=== PATIENT | male | born 1995 | race Caucasian/White ===

== ENCOUNTER 2016-12-11 21:32 | Emergency (ER) | payer OTHER ==
[2016-12-11 21:55] VITALS: BP 145/87; PULSE 83; TEMP 97.8; BMI 33.5
[2016-12-11] MEDS ORDERED: MECLIZINE HCL 25 MG TABLET (FP) PO ONE (21:55)
--- NOTE | 2016-12-11 21:55 | PDOC ---
[id number]/VOMITING/DIARRHEA Time Seen by Provider: 12/11/16 21:42 History Source: Patient Exam Limitations: No Limitations - History of Present Illness Initial Comments: 12/11/16 23:29 This is a 21-year-old male who comes in complaining of vertigo type symptoms 2 days. Patient said vertigo is associated with an intermittent headache and some nausea. Patient denies any recent upper respiratory tract symptoms or viral illnesses. Patient has not taken anything for the symptoms. The addition to that patient said he has been under a lot of stress and has had intermittent episodes of diarrhea and constipation for the last 4-5 months. Patient denies any abdominal pain, fever, chills, neck stiffness or any other complaints. Patient denies any associated tinnitus or ringing in his ears. Patient denies any change in vision but does complain of some mild photophobia. PAST MEDICAL HISTORY: no significant history PAST SURGICAL HISTORY: no significant history FAMILY HISTORY: no pertinant history SOCIAL HISTORY: Pt lives with family and is employed. MEDICATIONS: reviewed ALLERGIES: As per nursing notes Review of Systems General: No fevers or chills, no weakness, no weight loss HEENT: No change in vision. No sore throat,. No ear pain CardioVascular: No chest pain or shortness of breath Respiratory:No cough, or wheezing. Gastrointestinal: no nausea, vomitting, diarrhea or constipation, No rectal bleeding Genitourinary: No dysuria, hematuria, or frequency Musculoskeletal: No joint or muscle pain or swelling Neurologic: No headache, vertigo, dizziness or loss of consciousness Psychiatric: nor depression Skin: No rashes or easy bruising Endocrine: no increased thirst or abnormal weight change Allergic: no skin or latex allergy All other systems reviewed and normal Exam: General: Well-nourished well-developed individual, no acute distress HEENT: Throat: Normal, tonsils normal, no erythema or exudate Neck: Supple, no meningeal signs, no lymphadenopathy Eyes::Pupils equal reactive and round, extraocular motion intact Chest: Nontender to palpation Cardiac: S1-S2 normal, regular rate and rhythm, no murmurs rubs or gallops Respiratory: Lungs clear to auscultation bilateral Abdomen: Soft, nondistended, normal bowel sounds, nontender to palpation diffusely Extremities: Warm, dry, no cyanosis, clubbing, or edema Skin: No rashes Neuro: Alert and oriented x3, nonfocal exam, grossly intact, normal gait Psych: Normal mood and affect CT scan no acute intracranial pathology Assessment and plan: This is a 21-year-old male with vertigo most likely secondary to viral origin. Patient had a CAT scan as this is his first episode of the vertigo. The CAT scan was normal. Patient was treated with meclizine with resolution of his symptoms here in the emergency room and was sent home with Zofran and meclizine. Past History - Past Medical History Allergies/Adverse Reactions: Allergies Allergy/AdvReac Type Severity Reaction Status Date / Time No Known Allergies Allergy Verified 12/24/14 12:14 Home Medications: Ambulatory Orders Meclizine HCl 25 mg PO TID #24 tablet 12/11/16 Ondansetron [Zofran Odt -] 4 mg SL BID #14 od.tablet 12/11/16 - Psycho/Social/Smoking Cessation Hx Anxiety: No Suicidal Ideation: No Smoking History: Never smoked Hx Alcohol Use: No *DC/Admit/Observation/Transfer Diagnosis at time of Disposition: Vertigo - Discharge Dispostion Disposition: HOME Condition at time of disposition: Stable - Prescriptions Prescriptions: Meclizine HCl 25 mg PO TID #24 tablet Ondansetron [Zofran Odt -] 4 mg SL BID #14 od.tablet - Referrals Referrals: Candelaria Dobbins MD [Primary Care Provider] - - Patient Instructions Printed Discharge Instructions: DI for Vertigo Additional Instructions: For nausea take 1 Zofran as often as every 8-12 hours T dissolve under your tongue. For the spinning sensation take meclizine 1 tablet as often as every 4-6 hours as needed. Return to the emergency department immediately with ANY new, persistent or worsening symptoms. Continue any medications as previously prescribed by your physician. You should follow up with your primary doctor as soon as possible regarding today's emergency department visit. . Please make sure your doctor reviews the results of your emergency evaluation. Thank you for coming to the Emergency Department today for your care. It was a pleasure to see you today. Please note that your evaluation is INCOMPLETE until you follow-up with your doctor.
[2016-12-11] MEDS ORDERED: MECLIZINE HCL 25 MG TABLET (FP) ONE (21:58)
== END 2016-12-11 22:52 | disposition home or self-care (01) ==
LOC: FER 21:32
DX: R42 Dizziness and giddiness (principal)
CPT/HCPCS: 70450-TC; 99282-25